=== PATIENT | female | born 1955 | race Caucasian/White ===

== ENCOUNTER 2023-09-03 10:10 | Emergency (ER) | payer BC, SELFPAY ==
[2023-09-03 10:14] VITALS: BP 167/91; PULSE 84; TEMP 36.6; O2SAT 96; BMI 32.4
--- NOTE | 2023-09-03 10:24 | CT_ITS ---
The [address] [address] Patient Name: VENKAT BOWERS MRN: [id number] date: 1955 Sex: F Assigned Patient Location: ED.MAIN Current Patient Location: Accession/Order Number: [id number] Exam Date: 09/03/2023 10:41 Report Date: 09/03/2023 11:15 At the request of: YIFAN GOVEA Procedure: CT cervical spine wo con CT head/brain wo con, CT cervical spine wo con, 09/03/2023 10:41 AM EDT INDICATION: trauma COMPARISON: Prior CT of the head dated 11/06 2010 TECHNIQUE: Axial images of 3 mm are obtained from the base of the skull to vertex completed with Axial images of 2 mm are obtained from base of skull to T2 without contrast. Dose reduction techniques were achieved by using automated exposure control and/or adjustment of mA and/or kV according to patient size and/or use of iterative reconstruction technique. FINDINGS: The cerebral and cerebellar sulci as well as ventricular system are appropriate for age. There is no intracranial mass, mass effect, midline shift, intra or extra-axial fluid collection. No acute territorial infarction or hemorrhage is noted. Periventricular and centrum semiovale hypodensities are most likely consistent with microvascular ischemic changes. Mucosal thickening within the maxillary sinuses and ethmoidal cells is noted. The visualized portions of orbits, mastoid air cells as well as remainder of paranasal sinuses are unremarkable. There is no suspicious osteolytic or osteoblastic lesion. There is status post ACDF of C5-C6. No hardware fracture or loosening is noted. No acute fracture or dislocation is noted. Multilevel degenerative changes of cervical spine are noted. CT/CT cervical spine wo con IMPRESSION: No acute intracranial process is identified. No acute fracture. Electronically authenticated by: REGGIE MCADAMS Date: 09/03/2023 11:15
--- NOTE | 2023-09-03 10:24 | CT_ITS ---
The [address] [address] Patient Name: VENKAT BOWERS MRN: [id number] date: 1955 Sex: F Assigned Patient Location: ED.MAIN Current Patient Location: Accession/Order Number: [id number] Exam Date: 09/03/2023 10:41 Report Date: 09/03/2023 11:15 At the request of: YIFAN GOVEA Procedure: CT head/brain wo con CT head/brain wo con, CT cervical spine wo con, 09/03/2023 10:41 AM EDT INDICATION: trauma COMPARISON: Prior CT of the head dated 11/06 2010 TECHNIQUE: Axial images of 3 mm are obtained from the base of the skull to vertex completed with Axial images of 2 mm are obtained from base of skull to T2 without contrast. Dose reduction techniques were achieved by using automated exposure control and/or adjustment of mA and/or kV according to patient size and/or use of iterative reconstruction technique. FINDINGS: The cerebral and cerebellar sulci as well as ventricular system are appropriate for age. There is no intracranial mass, mass effect, midline shift, intra or extra-axial fluid collection. No acute territorial infarction or hemorrhage is noted. Periventricular and centrum semiovale hypodensities are most likely consistent with microvascular ischemic changes. Mucosal thickening within the maxillary sinuses and ethmoidal cells is noted. The visualized portions of orbits, mastoid air cells as well as remainder of paranasal sinuses are unremarkable. There is no suspicious osteolytic or osteoblastic lesion. There is status post ACDF of C5-C6. No hardware fracture or loosening is noted. No acute fracture or dislocation is noted. Multilevel degenerative changes of cervical spine are noted. CT/CT head/brain wo con IMPRESSION: No acute intracranial process is identified. No acute fracture. Electronically authenticated by: REGGIE MCADAMS Date: 09/03/2023 11:15
[2023-09-03 10:36] VITALS: BP 151/91
--- NOTE | 2023-09-03 10:37 | ECG_ITS ---
The [facility] Test Date: 2023-09-03 Pat Name: VENKAT BOWERS Department: Room: - Gender: Female [employer]: : 1955 Requested By: [id number] Order Number: [id number] Reading MD: KATE ROSARIO Measurements Intervals [place] Rate: 82 P: 33 [place]: 158 QRS: 40 QRSD: 90 T: 40 QT: 386 QTc: 425 Interpretive Statements 1100 Sinus rhythm 9110 normal ECG No previous ECG available for comparison Electronically Signed On 09-04-2023 8:51:11 EDT by KATE ROSARIO
--- NOTE | 2023-09-03 10:37 | CT_ITS ---
The [address] [address] Patient Name: VENKAT BOWERS MRN: [id number] date: 1955 Sex: F Assigned Patient Location: ER Current Patient Location: ER Accession/Order Number: [id number] Exam Date: 09/03/2023 10:41 Report Date: 09/03/2023 11:20 At the request of: YIFAN GOVEA Procedure: CT abdomen pelvis wo con CT abdomen pelvis wo con, 09/03/2023 10:41 AM EDT INDICATION: trauma COMPARISON: There is no appropriate prior study for comparison. TECHNIQUE: Axial images of the abdomen were obtained without administration of IV contrast. Multiplanar reformatted images were generated and reviewed as needed. Dose reduction techniques were achieved by using automated exposure control and/or adjustment of mA and/or kV according to patient size and/or use of iterative reconstruction technique. FINDINGS: Lungs: The base of lungs is clear. No pleural effusion is noted. Severe coronary artery calcification is noted. Liver and gallbladder: The liver and gallbladder are unremarkable. No enlargement of intra or extrahepatic biliary ducts. Genitourinary system: No hydronephrosis. No nephrolithiasis. No abnormality of the urinary bladder is noted. Other solid abdominal organs: adrenal glands, pancreas, and spleen are unremarkable. Aorta: The infrarenal abdominal aorta is nonaneurysmal. Free fluid: There is no free fluid in the abdomen pelvis. Lymph node: No lymph node enlargement by size criteria is noted. Stomach and Bowel: No abnormality of the stomach is noted. Colonic diverticulosis. Otherwise, no significant abnormality of the small or large bowel is noted. Bone: There is no suspicious osteolytic or osteoblastic lesion. Lower lumbar spine and SI joints mild degenerative changes are noted. CT/CT abdomen pelvis wo con IMPRESSION: No acute finding. Electronically authenticated by: REGGIE MCADAMS Date: 09/03/2023 11:20
--- NOTE | 2023-09-03 11:05 | ED_ITS ---
HPI HPI - General Adult General Chief complaint: Headache Stated complaint: FALL Time Seen by Provider: 09/03/23 10:15 Source: patient Mode of arrival: walk-in History of Present Illness HPI narrative: The patient history of hypertension coming to the ER after she sustained a fall according to her, yesterday almost around the morning time 10 AM she was trying to ride her horse and she was wearing her helmet. When she was going up the horse and after putting her left leg and the left side of the side of the patient when she is above the horse, somehow she and the horse fell together on the side she fell on her left side but she passed out for few minutes ,she does not remember what exactly happened after that but she remember according to the of her friend who helped someone drive her from under the horse, that she almost was confused for like 30 min at least after that, and she started having headache few hours later the headache is in both sides, no nausea no vomiting No abdominal pain no leg pain and no numbness or tingling or weakness The horses almost 1400- 1600 pounds as per her evaluation Related Data Previous Rx's ?Medication ?Instructions ?Recorded ibuprofen 600 mg tablet 600 mg PO Q8H PRN pain #10 tabs 09/03/23 orphenadrine citrate 100 mg 100 mg PO BID PRN muscle spasm #14 09/03/23 tablet,extended release tabs Allergies Allergy/AdvReac Type Severity Reaction Status Date / Time No Known Drug Allergies Allergy Verified 09/03/23 10:19 Opioid HPI Opioid Management Most Recent Opioid Data: Last Pain Scale 3 09/03/23 12:11 Last ED Pain Assessment 09/03/23 12:11 Last MAR Pain Assessment 09/03/23 11:37 Review of Systems ROS Status of ROS 10 or more systems reviewed and unremark able except as noted in history and below Exam Narrative Exam Narrative: Nurses notes and vital signs reviewed and patient is not hypoxic. General: Well-appearing and in no apparent distress. Skin: Warm, dry, no pallor noted. No rash. Head: Normocephalic, atraumatic. Neck: Bilateral neck pain both side of the neck paraspinal, no bruit heard in the arteries of the neck Eye: Pupils are equal, round and EOMI. No scleral icterus. Ears, Nose, Mouth, and Throat: TM are clear, no nasal mucosal hypertrophy. Oral mucosa is moist, no posterior oropharynx erythema, uvula is mid-line Cardiovascular: Regular Rate and Rhythm without murmur, gallop or rub. Respiratory: No accessory muscle use or respiratory distress. Lungs are clear to auscultation, no wheezing, rales or rhonchi Chest Wall: no tenderness Back: No midline thoracic or lumbar vertebral tenderness. No CVA tenderness Musculoskeletal: normal ROM, no calf or popliteal tenderness, no lower extremity edema/swelling GI: Abdomen is soft, non-distended. Normal bowel sounds. No masses appreciated. No tenderness to palpation. No rebound, guarding, or rigidity noted. Neurological: A&O x4. No cranial nerve dysfunction observed. No truncal ataxia. Moves all extremities. Sensation intact. Psychiatric: Cooperative and interactive. Normal mood and affect. Constitutional Vital Signs, click to edit/add: Last Vital Signs Temp 97.9 F 09/03/23 10:14 Pulse 84 09/03/23 10:14 Resp 16 09/03/23 10:14 BP 151/91 H 09/03/23 10:36 Pulse Ox 96 09/03/23 10:14 O2 Del Method Room Air 09/03/23 10:14 Course Vital Signs Vital signs: Vital Signs Temperature 97.9 F 09/03/23 10:14 Pulse Rate 84 09/03/23 10:14 Respiratory Rate 16 09/03/23 10:14 Blood Pressure 167/91 H 09/03/23 10:14 Pulse Oximetry 96 09/03/23 10:14 Oxygen Delivery Method Room Air 09/03/23 10:14 Temperature 97.9 F 09/03/23 10:14 Pulse Rate 84 09/03/23 10:14 Respiratory Rate 16 09/03/23 10:14 Blood Pressure 151/91 H 09/03/23 10:36 Pulse Oximetry 96 09/03/23 10:14 Oxygen Delivery Method Room Air 09/03/23 10:14 Medical Decision Making [facility] Narrative Medical decision making narrative: EKG showing sinus rhythm with a heart rate of [address] elevation or depression CBC and chemistry showed no acute pathology CT head as well as CT cervical and CT abdomen pelvis showed no acute pathology as well The patient neck pain is paraspinal and right now I did explain to her that muscle relaxant and ibuprofen high-dose will be enough for management of the pain but in case of any worsening she is to come back to the ER The patient was instructed about concussion management and home as she possibly could have had that from the fall She is to follow-up with her doctor within a week she is also to come back if any new symptoms or concerns and she is to rest and avoid any stress or exertion or any stimulation for the next few days The patient is to follow up with primary care physician in next 2-3 days or to return to the emergency department should any of the signs or symptoms worsen or new symptoms develop. The patient agrees with the following Diagnosis and Treatment plan and the patient will be discharged home. Lab Data Labs: Lab Results 09/03/23 Range/Units 11:05 WBC 10.4 (4.0-11.0) 10^3/uL RBC 4.79 (4.20-5.40) 10^6/uL Hgb 14.6 (12.0-16.0) g/dL Hct 44.5 (36.0-48.0) % MCV 92.9 (81.0-99.0) fL MCH 30.5 (26.7-34.0) pg MCHC 32.8 (29.9-35.2) g/dL RDW 13.5 (11.0-15.0) % Plt Count 330 (150-450) 10^3/uL MPV 8.3 L (9.5-13.5) fL Neut % (Auto) 72.8 (43.0-75.0) % Lymph % (Auto) 17.7 L (20.5-60.0) % [place] % (Auto) 7.1 (1.7-12.0) % Eos % (Auto) 1.5 (0.9-7.0) % Baso % (Auto) 0.7 (0.2-2.0) % Neut # (Auto) 7.6 H (1.4-6.5) 10^3/uL Lymph # (Auto) 1.8 (1.2-3.8) 10^3/uL [place] # (Auto) 0.7 (0.3-0.8) 10^3/uL Eos # (Auto) 0.2 (0.0-0.7) 10^3/uL Baso # (Auto) 0.1 (0.0-0.1) 10^3/uL Abs Immat Gran (auto) 0.02 (0.00-0.03) 10^3/uL Imm/Tot Granulo (auto) 0.2 (0.0-0.5) % Sodium 139 (136-145) mmol/L Potassium 3.7 (3.5-5.1) mmol/L Chloride 102 (98-107) mmol/L Carbon Dioxide 28.4 (21.0-32.0) mmol/L Anion Gap 12.3 BUN 11.0 (7.0-18.0) mg/dL Creatinine 0.84 (0.55-1.02) mg/dL Est GFR ( Amer) >60 (>=60) Est GFR (Non-Af Amer) >60 (>=60) BUN/Creatinine Ratio 13.1 Glucose 105 (74-106) mg/dL Calcium 9.1 (8.5-10.1) mg/dL Total Bilirubin 0.6 (0.2-1.0) mg/dL AST 21 (15-37) U/L ALT 22 (14-59) U/L Alkaline Phosphatase 75 (46-116) U/L Troponin I High Sens 7.1 (4.0-51.3) pg/mL Total Protein 7.8 (6.4-8.2) g/dL Albumin 3.7 (3.4-5.0) g/dL Globulin 4.1 g/dL Albumin/Globulin Ratio 0.9 Discharge Plan Discharge Stand Alone Forms: Portal Instructions Chief Complaint: Headache Clinical Impression: Acute neck sprain, Concussion, Headache Patient Disposition: Home, Self-Care Time of Disposition Decision: 12:34 Condition: Good Prescriptions / Home Meds: New orphenadrine citrate 100 mg tablet extended release 100 mg PO BID PRN (Reason: muscle spasm) Qty: 14 0RF ibuprofen 600 mg tablet 600 mg PO Q8H PRN (Reason: pain) Qty: 10 0RF Print Language: Filipino Instructions: Concussion (ED), Cervical Sprain (ED) Referrals: JOYCE BEJARANO [Physician] - 1 week Discharge Date/Time: 09/03/23 12:56
[2023-09-03 11:19] LABS: Basophils Absolute Auto 0.1 10^3/uL (0.0-0.1); Basophils Percent Auto 0.7 % (0.2-2.0); Eosinophils Absolute Auto 0.2 10^3/uL (0.0-0.7); Eosinophils Percent Auto 1.5 % (0.9-7.0); Hematocrit 44.5 % (36.0-48.0); Hemoglobin 14.6 g/dL (12.0-16.0); Immature Granulocytes Abs Auto 0.02 10^3/uL (0.00-0.03); Immature Granulocytes Pct Auto 0.2 % (0.0-0.5); Lymphocytes Absolute Auto 1.8 10^3/uL (1.2-3.8); Lymphocytes Percent Auto 17.7 % (20.5-60.0); Mean Corpuscular HGB Conc 32.8 g/dL (29.9-35.2); Mean Corpuscular Hemoglobin 30.5 pg (26.7-34.0); Mean Corpuscular Volume 92.9 fL (81.0-99.0); Mean Platelet Volume 8.3 fL (9.5-13.5); Monocytes Absolute Auto 0.7 10^3/uL (0.3-0.8); Monocytes Percent Auto 7.1 % (1.7-12.0); Neutrophils Absolute Auto 7.6 10^3/uL (1.4-6.5); Neutrophils Percent Auto 72.8 % (43.0-75.0); Platelet Count 330 10^3/uL (150-450); Red Blood Count 4.79 10^6/uL (4.20-5.40); Red Cell Distribution Width 13.5 % (11.0-15.0); White Blood Count 10.4 10^3/uL (4.0-11.0)
[2023-09-03] MEDS: KETOROLAC TROMETHAMINE 30 MG/ML VIAL 15 MG IVP (11:37)
[2023-09-03 11:43] LABS: Alanine Aminotransferase 22 U/L (14-59); Albumin Globulin Ratio 0.9; Albumin Level 3.7 g/dL (3.4-5.0); Alkaline Phosphatase 75 U/L (46-116); Anion Gap 12.3; Aspartate Amino Transferase 21 U/L (15-37); BUN Creatinine Ratio 13.1; Bilirubin Total 0.6 mg/dL (0.2-1.0); Calcium 9.1 mg/dL (8.5-10.1); Carbon Dioxide 28.4 mmol/L (21.0-32.0); Chloride 102 mmol/L (98-107); Estimated GFR (African America >60 (>=60); Estimated GFR (Non-African Ame >60 (>=60); Globulin 4.1 g/dL; Glucose 105 mg/dL (74-106); Potassium 3.7 mmol/L (3.5-5.1); Sodium 139 mmol/L (136-145); Total Protein 7.8 g/dL (6.4-8.2); Troponin I High Sensitivity 7.1 pg/mL (4.0-51.3)
== END 2023-09-03 12:56 | disposition home or self-care (01) ==
PROVIDERS: Emergency Provider Emergency Medicine; PCP Family Medicine
DX: S13.9XXA Sprain of joints and ligaments of unspecified parts of neck, initial encounter (principal); S06.0X0A Concussion without loss of consciousness, initial encounter; R51.9 Headache, unspecified; V80.010A Animal-rider injured by fall from or being thrown from horse in noncollision accident, initial encounter; I10 Essential (primary) hypertension
CPT/HCPCS: 36415; 70450; 72125; 74176; 80053; 84484; 85025; 93005; 96374; 99285

== ENCOUNTER 2024-07-26 15:03 | Emergency (ER) | payer MEDICARE, SELFPAY ==
[2024-07-26] VITALS (16 sets, daily range): BP systolic 124–144; BP diastolic 71–88; PULSE 67–77; TEMP 36.6; O2SAT 94–97; BMI 27.5
--- NOTE | 2024-07-26 15:14 | ECG_ITS ---
The [facility] Test Date: 2024-07-26 Pat Name: VENKAT BOWERS Department: Room: - Gender: Female [employer]ler: : 1955 Requested By: [id number] Order Number: [id number] Reading MD: BOBY WALLS M.D. Measurements Intervals [place] Rate: 76 P: 49 [place]: 160 QRS: 71 QRSD: 90 T: 55 QT: 404 QTc: 434 Interpretive Statements 1100 Sinus rhythm 9110 normal ECG Compared to ECG 09/03/2023 11:03:55 No significant changes Electronically Signed On 07-28-2024 21:38:14 EDT by BOBY WALLS M.D.
--- OUTSIDE RECORDS SUMMARY | 2024-07-26 15:19 | XMS_ITS | CCD ---
Author Organization [facility] Care Team Providers Care Case Assembler Name Role Phone JASMINA REECE Unavailable Unavailable JASMINA REECE Unavailable Unavailable JOYCE BEJARANO Unavailable MANFRED Guevara V Unavailable Unavailable JALEN PINTO Unavailable Unavailable Shruthi Fernandez MD Primary Care Provider Shruthi Fernandez MD Unavailable SHRUTHI FERNANDEZ Attending Unavailable SHRUTHI FERNANDEZ Attending Unavailable SHRUTHI FERNANDEZ Referring Unavailable SHRUTHI FERNANDEZ Attending Unavailable SHRUTHI FERNANDEZ Attending Unavailable KIMBERLY MANNING Attending Unavailable KAYCE LEW Referring Unavailable Allergies Allergy Classification Reported Allergen(s) Allergy Type Date of Onset Reaction(s) Facility (1 source) acetaminophen / HYDROcodone Drug Allergy [facility] (15 sources) Acetaminophen / HYDROcodone Drug Allergy 1 Hives [facility] Work Phone: (15 sources) Angiotensin-conve rting enzyme inhibitor agent Drug Allergy 2 Cough [facility] Work Phone: (15 sources) HMG-CoA reductase inhibitor Propensity to adverse reactions 3 Unknown [facility] (15 sources) HYDROcodone Drug Allergy 9 Other [facility] Medications Current Medications Medication Drug Class(es) Dates Sig (Normalized) Sig (Original) albuterol 0.83 mg/ml inhalation solution (20 sources) beta2-Adrenergic Agonist Start: 05-29-2023 albuterol (2.5 MG/3ML) 0.083% nebulizer solution Indications: Bronchitis Take 3 mL (2.5 mg) by nebulization every 6 (six) hours if needed for wheezing 75 mL 1 05/29/2023 Active Start: 05-29-2023 End: 05-28-2024 take 2 puff(s) by inhalation every four hours for wheezing albuterol HFA 90 mcg/act inhaler Indications: Bronchitis Inhale 2 puffs every 4 (four) hours if needed for wheezing 18 g 05/29/2023 Active amLODIPine 10 mg oral tablet (15 sources) Dihydropyridine Calcium Channel Markell Start: 11-09-2023 take 1 tablet by mouth once daily amLODIPine (Norvasc) 10 MG tablet Indications: Benign essential HTN (CMS/HCC) TAKE 1 TABLET BY MOUTH EVERY DAY 90 tablet 2 11/09/2023 Active aspirin 81 mg chewable tablet (15 sources) Platelet Aggregation Inhibitor, Nonsteroidal Anti-inflammatory Drug aspirin 81 MG chewable tablet Chew 81 mg in the morning. Active busPIRone hydrochloride 5 mg oral tablet (16 sources) Start: 06-06-2023 End: 04-08-2024 take 1 tablet by mouth in the morning busPIRone (Buspar) 5 MG tablet Indications: Anxiety Take 1 tablet (5 mg) by mouth in the morning and 1 tablet (5 mg) before bedtime. 180 tablet 1 04/08/2024 Active citalopram 40 mg oral tablet (17 sources) Serotonin Reuptake Inhibitor Start: 05-16-2024 take 1 tablet by mouth once daily citalopram (CeleXA) 40 MG tablet Indications: Recurrent major depressive disorder, in full remission (CMS/HCC) TAKE 1 TABLET BY MOUTH EVERY DAY 90 tablet 1 05/16/2024 Active Start: 08-12-2023 End: 05-16-2024 take 1 tablet by mouth once daily citalopram (CeleXA) 40 MG tablet Indications: Recurrent major depressive disorder, in full remission (CMS/HCC) TAKE 1 TABLET BY MOUTH EVERY DAY 90 tablet 02/07/2024 05/16/2024 Discontinued melatonin 3 mg oral tablet (15 sources) take 10 mg by mouth once daily melatonin 3 MG tablet Take 10 mg by mouth 1 (one) time each day at the same time Active meloxicam 15 mg oral tablet (17 sources) Nonsteroidal Anti-inflammatory Drug Start: 07-26-2023 End: 01-24-2025 take 1 tablet by mouth once daily meloxicam (Mobic) 15 MG tablet Indications: Pain in joints of both feet Take 1 tablet (15 mg) by mouth Daily 30 tablet 01/25/2024 01/24/2025 Active Multiple Vitamins-Minerals (Multivitamin Women 50+) tablet (15 sources) take 1 tablet by mouth once daily Multiple Vitamins-Minerals (Multivitamin Women 50+) tablet Take 1 tablet by mouth 1 (one) time each day at the same time. Active Completed/Discontinued Medications Medication Drug Class(es) Dates Sig (Normalized) Sig (Original) ezetimibe 10 mg oral tablet (3 sources) Dietary Cholesterol Absorption Inhibitor Start: 09-20-2023 End: 01-25-2024 take 1 tablet by mouth once daily ezetimibe (Zetia) 10 MG tablet Indications: Mixed hyperlipidemia (CMS/HCC) Take 1 tablet (10 mg) by mouth Daily 90 tablet 09/20/2023 01/25/2024 Discontinued (Therapy completed) Problems Active Problems Problem Classification Problem Date Documented Date Episodic/Chronic Acquired foot deformities (15 sources) Acquired hallux rigidus; Translations: [Hallux rigidus, unspecified foot] Onset: 09-11-2022 09-11-2022 Chronic Adjustment disorders (15 sources) Family tension; Translations: [Reaction to severe stress, unspecified] Onset: 09-11-2022 09-11-2022 Chronic Anxiety disorders (1 source) Anxiety; Translations: [Anxiety disorder, unspecified] 04-08-2024 Chronic Disorders of lipid metabolism (15 sources) Hyperlipidemia; Translations: [Hyperlipidemia, unspecified] Onset: 09-11-2022 09-11-2022 Chronic Esophageal disorders (15 sources) Gastroesophageal reflux disease without esophagitis; Translations: [Gastro-esophageal reflux disease without esophagitis] Onset: 09-11-2022 09-11-2022 Chronic Essential hypertension (20 sources) Benign essential hypertension; Translations: [Essential (primary) hypertension] Onset: 03-23-2015 09-11-2022 Chronic Genitourinary symptoms and ill-defined conditions (15 sources) Genuine stress incontinence; Translations: [Stress incontinence (female) (male)] Onset: 09-11-2022 09-11-2022 Chronic Malaise and fatigue (20 sources) Fatigue; Translations: [Chronic fatigue, unspecified] Onset: 10-04-2016 09-11-2022 Chronic Mood disorders (17 sources) Recurrent major depression in full remission; Translations: [Major depressive disorder, recurrent, in full remission] Onset: 09-11-2022 09-11-2022 Chronic Other and unspecified benign neoplasm (2 sources) Melanocytic nevus of scalp; Translations: [Melanocytic nevi of scalp and neck] 02-14-2024 Episodic Other connective tissue disease (2 sources) Muscle pain; Translations: [Myalgia, unspecified site] 01-29-2024 Episodic Other lower respiratory disease (2 sources) Nodule of lung; Translations: [Solitary pulmonary nodule] 07-15-2024 Episodic Other non-traumatic joint disorders (2 sources) Bilateral foot joint pain; Translations: [Pain in right ankle and joints of right foot] 01-25-2024 Episodic Other nutritional; endocrine; and metabolic disorders (2 sources) Body mass index 30+ - obesity; Translations: [Obesity, unspecified] 01-25-2024 Chronic Other skin disorders (2 sources) Seborrheic keratosis; Translations: [Other seborrheic keratosis] 02-14-2024 Episodic Other skin disorders (2 sources) Lentiginosis; Translations: [Other melanin hyperpigmentation] 02-14-2024 Episodic Other skin disorders (2 sources) Sebaceous hyperplasia; Translations: [Other specified follicular disorders] 02-14-2024 Episodic Other skin disorders (2 sources) Epidermoid cyst; Translations: [Epidermal cyst] 02-14-2024 Episodic Other skin disorders (2 sources) Acne vulgaris; Translations: [Acne vulgaris] 02-14-2024 Episodic Other skin disorders (2 sources) Inflamed seborrheic keratosis; Translations: [Inflamed seborrheic keratosis] 02-14-2024 Episodic Residual codes; unclassified (1 source) Tobacco use and exposure - finding; Translations: [Tobacco use] 07-15-2024 Episodic Screening and history of mental health and substance abuse codes (1 source) Tobacco use and exposure - finding 07-15-2024 Chronic Screening and history of mental health and substance abuse codes (2 sources) Personal history of nicotine dependence; Translations: [Personal history of tobacco use] 07-15-2024 Episodic Spondylosis; intervertebral disc disorders; other back problems (6 sources) Cervicalgia; Translations: [Disorder of left sciatic nerve] Onset: 07-07-2017 01-25-2024 Episodic Substance-related disorders (1 source) Nicotine dependence, cigarettes, uncomplicated; Translations: [NICOTINE DEPEND CIGARETTES UNCOMP] Onset: 07-11-2017 Chronic Past or Other Problems Problem Classification Problem Date Documented Date Episodic/Chronic Allergic reactions (15 sources) Allergy to penicillin; Translations: [Allergy status to penicillin] Onset: 05-11-2020 09-12-2022 Episodic Headache, including migraine (20 sources) Headache; Translations: [Headache disorder] Onset: 07-11-2017 09-11-2022 Episodic Mood disorders (15 sources) Mood disorders Onset: 09-20-2023 09-20-2023 Other diseases of kidney and ureters (15 sources) Cyst of kidney; Translations: [Cyst of kidney, acquired] Onset: 10-13-2020 09-12-2022 Episodic Other injuries and conditions due to external causes (15 sources) H/O: musculoskeletal disease; Translations: [Personal history of other (healed) physical injury and trauma] Onset: 05-06-2020 09-12-2022 Episodic Other nervous system disorders (15 sources) H/O: migraine; Translations: [Personal history of other diseases of the nervous system and sense organs] Onset: 05-06-2020 09-12-2022 Episodic Other non-epithelial cancer of skin (20 sources) Basal cell carcinoma of cheek; Translations: [Basal cell carcinoma of skin of other parts of face] Onset: 10-06-2020 09-11-2022 Episodic Results Test Name Value Interpretation Reference Range Facil ity CT CHEST WO IV CONTRASTon CT CHEST WO IV CONTRAST Exam: CT CHEST WO IV CONTRAST Clinical History: Follow up on lung nodule, left upper lobe Reference Exam: No comparison Imaging technique: Axial imaging of the thorax is provided from above the thoracic inlet, through the hemidiaphragms. No IV contrast was delivered. Imaging findings: Heart/pericardium: The heart size is normal. No pericardial effusion. No evidence of chamber enlargement. There is evidence of advanced coronary arterial calcification. Great vessels: The great vessels are remarkable for atherosclerosis of the aortic arch extending into the great vessel origins. Standard great vessel branching pattern. Hilum/mediastinum: Negative for mediastinal lymphadenopathy or mass. Pulmonary parenchymal analysis: Pulmonary parenchyma is adequately aerated. No lobar airspace disease. Left upper lobe subpleural 0.7 cm soft tissue density pulmonary nodularity. No other pulmonary nodularity identified. Slightly prominent reticular interstitial lung markings. Subpleural blebs anterior inferior left lower lobe medially. No pneumothorax. No pleural effusion. The airway is unremarkable. No abnormality of the pleural space. Thoracic inlet: Symmetry of the structures here is documented. Upper abdomen: Negative. Osseous analysis: Thoracic spinal spondylosis. Chest wall: Negative. Impression: 1. 0.75 cm soft tissue density pulmonary nodule left upper lobe in the apex. 2. Slightly prominent reticular central lung markings. No lobar consolidation. 3. Vascular atherosclerotic disease. 4. No acute cardiopulmonary pathology otherwise identified. Dictated on: 07/09/2024 4:29 PM This report has been electronically signed and approved by the interpreting Radiologist. All CT scans at this institution are performed using dose optimization techniques as appropriate for the performed exam including the following: Automated exposure control Adjustment of the mA and/or kV according to patient size Use of iterative reconstruction technique Addendum: This examination is compared with 10/01/2023 after the prior studies have for review. Soft tissue density nodule in the posterior superior left upper lobe subpleural location is thought to be slightly more prominent. Addendum impression: Soft tissue subpleural nodularity left upper lobe posteriorly adjacent to the major fissure is thought to be slightly more prominent prior test. 1-year follow-up recommended. Exam: CT CHEST WO IV CONTRAST Clinical History: Follow up on lung nodule, left upper lobe Reference Exam: No comparison Imaging technique: Axial imaging of the thorax is provided from above the thoracic inlet, through the hemidiaphragms. No IV contrast was delivered. Imaging findings: Heart/pericardium: The heart size is normal. No pericardial effusion. No evidence of chamber enlargement. There is evidence of advanced coronary arterial calcification. Great vessels: The great vessels are remarkable for atherosclerosis of the aortic arch extending into the great vessel origins. Standard great vessel branching pattern. Hilum/mediastinum: Negative for mediastinal lymphadenopathy or mass. Pulmonary parenchymal analysis: Pulmonary parenchyma is adequately aerated. No lobar airspace disease. Left upper lobe subpleural 0.7 cm soft tissue density pulmonary nodularity. No other pulmonary nodularity identified. Slightly prominent reticular interstitial lung markings. Subpleural blebs anterior inferior left lower lobe medially. No pneumothorax. No pleural effusion. The airway is unremarkable. No abnormality of the pleural space. Thoracic inlet: Symmetry of the structures here is documented. Upper abdomen: Negative. Osseous analysis: Thoracic spinal spondylosis. Chest wall: Negative. Impression: 1. 0.75 cm soft tissue density pulmonary nodule left upper lobe in the apex. 2. Slightly prominent reticular central lung markings. No lobar consolidation. 3. Vascular atherosclerotic disease. 4. No acute cardiopulmonary pathology otherwise identified. Dictated on: 07/09/2024 4:29 PM This report has been electronically signed and approved by the interpreting Radiologist. All CT scans at this institution are performed using dose optimization techniques as appropriate for the performed exam including the following: Automated exposure control Adjustment of the mA and/or kV according to patient size Use of iterative reconstruction technique Normal Not Available No Panel Informationon 02-13 [employer] CBC panel Auto (Bld)on 01-29 WBC (Bld) [#/Vol] TNP Thousand/uL [facility] Comment on above: TEST NOT PERFORMED No specimen received. Laboratory - Hematology and Cell countson 01-30-2024 ESR (Bld) [Velocity] TNP mm/h [facility] Comment on above: TEST NOT PERFORMED No specimen received. No Panel Informationon 01-29 Performing Organization Information Site ID: QPT Name: [facility] Address: [address] [place] [id number] Director: Jake Garcia MD [employer] [facility] BI MAMMOGRAM SCREENING TOMOS YNTHESIS BILATERALon 10-01-2023 BI MAMMOGRAM SCREENING TOMOSYNTHESIS BILATERAL This is a summary report. The complete report is available in the patient's medical record. If you cannot access the medical record, please contact the sending organization for a detailed fax or copy. EXAMINATION: BI MAMMOGRAM SCREENING TOMOSYNTHESIS BILATERAL CLINICAL HISTORY:screening COMPARISON: September 25, 2022 . RESULT: Density: Almost entirely fatty [1] There is no suspicious mass, asymmetry, architectural distortion, or calcification. Typically benign calcifications. Overall appearance stable. IMPRESSION: BIRADS 2 - Benign Follow-up: Routine Screening Mamm Board Certified Radiologists. Accredited by the ACR and FDA. MAMMOGRAPHY IS VERY IMPORTANT TO YOUR HEALTH. THE [employer] GUIDELINES RECOMMEND THAT WOMEN 40 YEARS OF AGE AND OLDER SHOULD HAVE A MAMMOGRAM EVERY YEAR. A REMINDER LETTER WILL BE SENT AT THE APPROPRIATE TIME. THIS FACILITY UTILIZES A REMINDER SYSTEM TO ENSURE ALL PATIENTS RECEIVE REMINDER NOTIFICATIONS AT THE APPROPRIATE TIME BASED ON THE RECOMMENDATIONS OF THIS EXAM. THIS INCLUDES REMINDERS FOR ROUTINE SCREENING MAMMOGRAMS, DIAGNOSTIC MAMMOGRAMS IN WHICH THE PATIENT IS ASKED TO RETURN FOR ADDITIONAL VIEWS, OR OTHER BREAST IMAGING INTERVENTIONS WHEN APPROPRIATE. THE PATIENT WILL BE PLACED IN THE APPROPRIATE REMINDER SYSTEM INCLUDING A REMINDER AT THE APPROPRIATE TIME FOR ANY PENDING ADDITIONAL VIEWS. TRANSCRIBED BY: ELECTRONICALLY SIGNED BY: Micheal Rios MD Normal Not Available CT LUNG SCREENING LOW DOSEon 10-01-2023 CT LUNG SCREENING LOW DOSE This is a summary report. The complete report is available in the patient's medical record. If you cannot access the medical record, please contact the sending organization for a detailed fax or copy. LOW DOSE CT IMAGING OF THE CHEST WITHOUT INTRAVENOUS CONTRAST MEDIUM. HISTORY: Tobacco use. TECHNICAL FACTORS: Without IV contrast axial helical 1.25mm slice thickness low dose images of the chest performed for lung cancer screening. Findings: No suspicious lung nodule, mass or parenchymal consolidation. Mild bilateral subpleural interstitial prominence. 5 x 10 mm subsolid pleural-based nodule posterior segment left upper lobe contiguous with the superior most aspect of the left major fissure. No pleural or pericardial effusion. No mediastinal or hilar lymphadenopathy. (Nonspecific low volume mediastinal hilar lymph nodes). Unremarkable upper abdominal images. IMPRESSION: Lung Rads: LUNGRADS 3 - Probably Benign Follow-up Recommendation: LDCT 6 Month Lung Rads categories Category 0: Incomplete Additional Imaging Categories 1 & 2: Negative/Benign Continue annual screening Category 3: Probable benign 6 month f/u CT Chest wo Category 3s: Clinically significant or potentially clinically significant findings Category 4A/B Suspicious 4A: [address] Chest wo; PET/CT when > 8mm solid nodule component exists 4B: Chest w/ contrast; PET/CT and/or biopsy All CT scans at this facility use dose modulation, iterative reconstruction, and/or weight based dosing when appropriate to reduce radiation dose to as low as reasonably achievable. TRANSCRIBED BY: ELECTRONICALLY SIGNED BY: Micheal Rois MD Normal Not Available SCREENING MAMMOGRAM W/JOSIAH, BILATERAL*on 09-21-2021 SCREENING MAMMOGRAM W/JOSIAH, BILATERAL* COMPARISON: Dating back to September 14, 2020 and September 04, 2019. TECHNIQUE: 2D and 3D Tomosynthesis of the right and left breasts was performed. FINDINGS: Breast composition demonstrates almost entirely fat. Overall appearance is stable. Typicallyk benign calcifications. No suspicious microcalcifications, dominant mass lesions, or distortion is present. IMPRESSION: BI-RADS 2 Benign Mammogram Board Certified Radiologist. Accredited by the ACR and FDA. MAMMOGRAPHY IS VERY IMPORTANT TO YOUR HEALTH. THE CURRENT [employer] GUIDELINES RECOMMENDS ANNUAL MAMMOGRAPHY BEGINNING AT AGE 40 THIS FACILITY USES A REMINDER SYSTEM TO ENSURE ALL PATIENTS RECEIVE REMINDER NOTIFICATIONS AT THE APPROPRIATE TIME BASED ON THE RECOMMENDATIONS OF THIS EXAM. Report reported and signed by Micheal Rios on 09/21/2021 0947 Normal [facility] Complete Blood Count with Au to Diffon 09-09-2021 Basophils (Bld) [#/Vol] 0.06 10*3/uL Normal 0.00-0.20 [facility] Specialist Comment on above: Performed By: #### C BCAD, LIPD, TSH reflex FT4, CMP #### [facility] [address], [place] [id number] Basophils/100 WBC (Bld) 0.6 % Normal [facility] Comment on above: Performed By: #### C BCAD, LIPD, TSH reflex FT4, CMP #### [facility] [address], [place] [id number] Eosinophils (Bld) [#/Vol] 0.49 10*3/uL Normal 0.02-0.50 [facility] Comment on above: Performed By: #### C BCAD, LIPD, TSH reflex FT4, CMP #### [facility] [address], [place] [id number] Eosinophils/100 WBC (Bld) 5.3 % Normal [facility] Comment on above: Performed By: #### C BCAD, LIPD, TSH reflex FT4, CMP #### [facility] [address], [place] [id number] Erythrocyte distribution width (RBC) [Ratio] 13.5 % Normal 11.0-15.0 [facility] Comment on above: Performed By: #### C BCAD, LIPD, TSH reflex FT4, CMP #### [facility] [address], [place] [id number] Hematocrit (Bld) [Volume fraction] 43.3 % Normal 35.0-47.0 [facility] Specialist Comment on above: Performed By: #### C BCAD, LIPD, TSH reflex FT4, CMP #### [facility] [address], [place] [id number] Hemoglobin (Bld) [Mass/Vol] 14.3 g/dL Normal 11.6-15.5 [facility] Specialist Comment on above: Performed By: #### C BCAD, LIPD, TSH reflex FT4, CMP #### [facility] [address], [place] [id number] Lymphocytes (Bld) [#/Vol] 2.0 10*3/uL Normal 0.9-3.9 [facility] Specialist Comment on above: Performed By: #### C BCAD, LIPD, TSH reflex FT4, CMP #### [facility] [address], [place] [id number] Lymphocytes/100 WBC (Bld) 22.0 % Normal [facility] Specialist Comment on above: Performed By: #### C BCAD, LIPD, TSH reflex FT4, CMP #### [facility] [address], [place] [id number] MCH (RBC) [Entitic mass] 30.3 pg Normal 27.0-33.0 [facility] Specialist Comment on above: Performed By: #### C BCAD, LIPD, TSH reflex FT4, CMP #### [facility] [address], [place] [id number] MCHC (RBC) [Mass/Vol] 33.0 g/dL Normal 32.0-36.0 [facility] Specialist Comment on above: Performed By: #### C BCAD, LIPD, TSH reflex FT4, CMP #### [facility] [address], [place] [id number] MCV (RBC) [Entitic vol] 92 fL Normal 80-100 [facility] Specialist Comment on above: Performed By: #### C BCAD, LIPD, TSH reflex FT4, CMP #### [facility] [address], [place] [id number] Monocytes (Bld) [#/Vol] 0.6 10*3/uL Normal 0.2-0.9 [facility] Specialist Comment on above: Performed By: #### C BCAD, LIPD, TSH reflex FT4, CMP #### [facility] [address], [place] [id number] Monocytes/100 WBC (Bld) 6.2 % Normal [facility] Specialist Comment on above: Performed By: #### C BCAD, LIPD, TSH reflex FT4, CMP #### [facility] [address], [place] [id number] Neutrophils (Bld) [#/Vol] 6.1 10*3/uL Normal 1.5-7.8 [facility] Specialist Comment on above: Performed By: #### C BCAD, LIPD, TSH reflex FT4, CMP #### [facility] [address], [place] [id number] Neutrophils/100 WBC (Bld) 65.5 % Normal [facility] Specialist Comment on above: Performed By: #### C BCAD, LIPD, TSH reflex FT4, CMP #### [facility] [address], [place] [id number] Platelet mean volume (Bld) [Entitic vol] 8.90 fL Normal 7.50-12.50 [facility] Specialist Comment on above: Performed By: #### C BCAD, LIPD, TSH reflex FT4, CMP #### [facility] [address], [place] [id number] Platelets (Bld) [#/Vol] 382 10*3/uL Normal 140-400 [facility] Specialist Comment on above: Performed By: #### C BCAD, LIPD, TSH reflex FT4, CMP #### [facility] [address], [place] [id number] RBC (Bld) [#/Vol] 4.72 10*6/uL Normal 3.90-5.20 [facility] [employer] Chair Comment on above: Performed By: #### C BCAD, LIPD, TSH reflex FT4, CMP #### [facility] [address], [place] [id number] RDW-SD 45.8 fL Normal 37.0-50.0 [facility] [employer] [facility] Chair Comment on above: Performed By: #### C BCAD, LIPD, TSH reflex FT4, CMP #### [facility] [address], [place] [id number] WBC (Bld) [#/Vol] 9.3 10*3/uL Normal 3.8-11.0 [place] [employer] [facility] Chair Comment on above: Performed By: #### C BCAD, LIPD, TSH reflex FT4, CMP #### [facility] [address], [place] [id number] [facility] 09-09-2021 Albumin [Mass/Vol] 4.4 g/dL Normal 3.6-5.1 [place] [facility] [place] [employer] Chair Comment on above: Performed By: #### C BCAD, LIPD, TSH reflex FT4, CMP #### [facility] [address], [place] [id number] Albumin/Globulin [Mass ratio] 2.1 {ratio} Normal 1.0-2.5 [facility] [employer] Chair Comment on above: Performed By: #### C BCAD, LIPD, TSH reflex FT4, CMP #### [facility] [address], [place] [id number] ALP [Catalytic activity/Vol] 75 U/L Normal 35-119 [facility] [employer] Chair Comment on above: Performed By: #### C BCAD, LIPD, TSH reflex FT4, CMP #### [facility] [address], [place] [id number] ALT [Catalytic activity/Vol] 10 U/L Normal 6-33 [facility] [employer] Chair Comment on above: Result Comment: 03/09 Female reference range changed. Performed By: #### C BCAD, LIPD, TSH reflex FT4, CMP #### [facility] [address], [place] [id number] Anion gap [Moles/Vol] 16 mmol/L Normal 12-20 [facility] [employer] Division Chair Comment on above: Result Comment: Effe ctive 04/14/2019 reference range changed. Performed By: #### C BCAD, LIPD, TSH reflex FT4, CMP #### [facility] [address], [place] [id number] AST [Catalytic activity/Vol] 17 U/L Normal 9-34 [facility] [employer] [facility] Chair Comment on above: Performed By: #### C BCAD, LIPD, TSH reflex FT4, CMP #### [facility] [address], [place] [id number] Bilirubin [Mass/Vol] 0.40 mg/dL Normal 0.30-1.20 [facility] Specialist Comment on above: Performed By: #### C BCAD, LIPD, TSH reflex FT4, CMP #### [facility] [address], [place] [id number] BUN/CREA 28 Ratio High 6-22 [facility] Comment on above: Performed By: #### C BCAD, LIPD, TSH reflex FT4, CMP #### [facility] [address], [place] [id number] Calcium [Mass/Vol] 9.3 mg/dL Normal 8.6-10.2 [facility] Comment on above: Performed By: #### C BCAD, LIPD, TSH reflex FT4, CMP #### [facility] [address], [place] [id number] Chloride [Moles/Vol] 101 mmol/L Normal 98-107 [facility] Specialist Comment on above: Performed By: #### C BCAD, LIPD, TSH reflex FT4, CMP #### [facility] [address], [place] [id number] CO2 [Moles/Vol] 24 mmol/L Normal 20-31 [facility] Comment on above: Performed By: #### C BCAD, LIPD, TSH reflex FT4, CMP #### [facility] [address], [place] [id number] Creatinine [Mass/Vol] 0.6 mg/dL Normal 0.6-1.4 [facility] Comment on above: Performed By: #### C BCAD, LIPD, TSH reflex FT4, CMP #### [facility] [address], [place] [id number] eGFRAA 117 mL/min/1.73m2 Normal >60 [facility] Comment on above: Performed By: #### C BCAD, LIPD, TSH reflex FT4, CMP #### [facility] [address], [place] [id number] eGFRNAA 97 mL/min/1.73m2 Normal >60 [facility] [employer] [facility] Chair Comment on above: Performed By: #### C BCAD, LIPD, TSH reflex FT4, CMP #### [facility] [address], [place] [id number] Globulin (S) [Mass/Vol] 2.1 g/dL Normal 1.9-3.7 [facility] [employer] [facility] Chair Comment on above: Performed By: #### C BCAD, LIPD, TSH reflex FT4, CMP #### [facility] [address], [place] [id number] Glucose [Mass/Vol] 94 mg/dL Normal 65-99 [facility] [place] [facility] Chair Comment on above: Result Comment: For FASTING Glucose --- ADA reference ranges: Normal 65-99 mg/dl Prediabetes 100-125 Diabetes >/= 126 Performed By: #### C BCAD, LIPD, TSH reflex FT4, CMP #### [facility] [address], [place] [id number] Potassium [Moles/Vol] 3.9 mmol/L Normal 3.5-5.5 [facility] Chair Comment on above: Performed By: #### C BCAD, LIPD, TSH reflex FT4, CMP #### [facility] [address], [place] [id number] Protein [Mass/Vol] 6.5 g/dL Normal 6.1-8.1 [place] [facility] [place] [facility] Chair Comment on above: Performed By: #### C BCAD, LIPD, TSH reflex FT4, CMP #### [facility] [address], [place] [id number] Sodium [Moles/Vol] 137 mmol/L Normal 135-146 [facility] [place] [facility] Chair Comment on above: Performed By: #### C BCAD, LIPD, TSH reflex FT4, CMP #### [facility] [address], [place] [id number] Urea nitrogen [Mass/Vol] 18 mg/dL Normal 7-25 [facility] Chair Comment on above: Performed By: #### C BCAD, LIPD, TSH reflex FT4, CMP #### [facility] [address], [place] [id number] Lipid Panelon 09-09-2021 Cholesterol [Mass/Vol] 250 mg/dL High 125-200 [facility] Specialist Comment on above: Result Comment: Low risk < 200mg/dL Borderline risk 201-239 mg/dl High risk > or equal to 240 Performed By: #### C BCAD, LIPD, TSH reflex FT4, CMP #### [facility] [address], [place] [id number] Cholesterol in HDL [Mass/Vol] 79 mg/dL Normal >40 [facility] Specialist Comment on above: Result Comment: High Cardiovascular Risk HDL <40 mg/dL Low Cardiovascular Risk HDL > or equal to 60 mg/dl Performed By: #### C BCAD, LIPD, TSH reflex FT4, CMP #### [facility] [address], [place] [id number] Cholesterol in LDL [Mass/Vol] 153 mg/dL Normal [facility] Specialist Comment on above: Result Comment: LDL ATP III CLASSIFICATION LDL less than 100 mg/dl Optimal LDL 100-129 mg/dl Near or above optimal LDL 130-159 Borderline high LDL 160-189 High LDL greater than 189 mg/dl Very High Performed By: #### C BCAD, LIPD, TSH reflex FT4, CMP #### [facility] [address], [place] [id number] Cholesterol in VLDL [Mass/Vol] 18 mg/dL Normal [facility] Specialist Comment on above: Performed By: #### C BCAD, LIPD, TSH reflex FT4, CMP #### [facility] [address], [place] [id number] Cholesterol.total/C holesterol in HDL [Mass ratio] 3 {ratio} Normal [facility] Specialist Comment on above: Performed By: #### C BCAD, LIPD, TSH reflex FT4, CMP #### [facility] [address], [place] [id number] Triglyceride [Mass/Vol] 91 mg/dL Normal 30-150 [facility] Specialist Comment on above: Result Comment: TRIG ATPIII CLASSIFICATIONS TRIG less than 150 mg/dl Normal TRIG 150-199 mg/dl Borderline High TRIG 200-500 mg/dl High TRIG greather than 500 mg/dl Very High Performed By: #### C BCAD, LIPD, TSH reflex FT4, CMP #### [facility] [address], [place] [id number] TSH w/ Reflex to Free T4on 0 09-09-2021 TSH 3.840 uIU/mL Normal 0.400-4.500 [facility] io Math And Science Division Chair Comment on above: Performed By: #### C BCAD, LIPD, TSH reflex FT4, CMP #### [facility] [address], [place] [id number] Superficial Wound Cultureon 12-02-2020 Superficial Wound Culture RIGHT LATERAL CHEEK Heavy Normal Skin Amy 2 Days PERFORMED BY: [place] [address] PATHOLOGIST INTERNET APPLICATION DEVELOPER CECILIA ALEJO M.D. [facility] Comment on above: Performed By: #### C USUP #### [place] [address] [place] XR ankle LT min 3V*on 2020 XR ankle LT min 3V* [facility] [place] [address] [place] [address] XRay Report Signed Patient: Venkat Thompson MR#: [id number] 663 : 1955 Acct:[id number] Age/Sex: 64 / F ADM Date: 09/30/20 Loc: [facility] Room: Type: [facility] Attending Dr: Ari Braga MD Ordering Provider: Ari Braga MD Date of Service: 09/30/20 XR/XR ankle LT min 3V*: Closed avulsion fracture of distal end of left fibula with r Copies to: Ari Braga MD XR ankle LT min 3V* 09/30/2020 8:38 AM SIGNS AND SYMPTOMS: Status post avulsion fracture of the left distal fibula, follow-up PROTOCOL: Frontal, lateral, and oblique radiographs of the left ankle COMPARISON: 08/30/2020 FINDINGS: There is redemonstration of a tiny avulsed fragment from the lateral malleolus without significant interval change in alignment. There is diffuse soft tissue swelling. There is no evidence of acute displaced fracture. No subluxation. The ankle mortise is preserved. There is mild Achilles surface calcaneal spurring. Mild degenerative changes are noted in the midfoot. XR/XR ankle LT min 3V* IMPRESSION: Redemonstration of a minimally displaced avulsion fracture at the lateral malleolus with adjacent soft tissue swelling. No change in alignment. Impression dictated by: Joyce Miranda M.D.09/30/2020 12:31 PM Dictation Location: [place] [address] Transcribed By: [facility] 09/30/20 1231 Dictated By: Joyce Miranda II, MD 09/30/20 1230 Signed By: 09/30/[address] [facility] XR foot LT min 3V*on 021 XR foot LT min 3V* [facility] [place] [address] [place] [address] XRay Report Signed Patient: Venkat Thompson MR#: [id number] 663 : 1955 Acct:[id number] Age/Sex: 64 / F ADM Date: 08/30/20 Loc: [facility] Room: Type: [facility] Attending Dr: Kimberly LANGLEY Ordering Provider: KIMBERLY CANNON Date of Service: 08/30/20 XR/XR foot LT min 3V*: Injury of left ankle, initial encounter ([id number]) XR/XR ankle LT min 3V*: Injury of left ankle, initial encounter Copies to: KIMBERLY CANNON Left ankle and left foot 08/30/2020. CLINICAL DATA: Left ankle and left foot pain after injury. LEFT ANKLE FINDINGS: 3 views of the left ankle were obtained. There is an acute displaced avulsion fracture at the distal lateral malleolus. No other fracture is identified. No dislocation is seen. Degenerative changes are visualized. Soft tissue swelling is noted, greatest laterally. LEFT FOOT FINDINGS: 3 views of the left foot were obtained. Excluding the distal fibula, no acute fracture or dislocation is identified. There are degenerative changes at the first metatarsal- phalangeal joint. Excluding the ankle, no significant soft tissue swelling is noted. XR/XR ankle LT min 3V* IMPRESSION: Acute displaced avulsion fracture at the distal lateral malleolus. Impression dictated by: Hal Pascual Jr., M.D.08/30/2020 4:47 PM Dictation Location: [place] [address] Transcribed By: [facility] 08/30/207 Dictated By: Hal Pascual Jr, MD 08/30/20 1640 Signed By: 08/30/207 [facility] XR C-SPINE 2-3 VIEWSon 07-07 XR C-SPINE 2-[address] [place] [id number] Patient: VENKAT THOMPSON Exam Date: 07/07/2017DOB: 1955 Gender:F : TORREY HIRSCH Admission #: [id number] : DR JASMINA REECE D.O. Order #: [id number] HERE TO VIEW EXAM RADIOLOGY REPORT PROCEDURE: RADIOGRAPH C-SPINE 2-3 VIEWS COMPARISON: None. INDICATIONS: Acute posterior cervical pain FINDINGS: BONES: Moderate widespread spondylosis and facet osteoarthritis. No visible acute bony abnormality. Anterior fusion C6-C7. No mechanical failure.DISC SPACES: Intervertebral spacer [id number]: Negative. No paraspinous abnormality is seen. OTHER: Negative. CONCLUSION: 1. Moderate spondylosis and facet osteoarthritis Dictated by: Manfred Hall M.D. on 07/07/2017 at 16:29 Approved by: Manfred Hall M.D. on 07/07/2017 at 16:31 Normal [facility] Vital Signs Date Time Vital Sign Value Performing Clinician Annie weems 01-29-2024 13:040 Body height 162.6 cm Shruthi Fernandez MD Work Phone: [facility] 01-29-2024 13:040 Body mass index (BMI) [Ratio] 28.94 kg/m2 Shruthi Fernandez MD Work Phone: [facility] 01-29-2024 13:040 Body weight 76.48 kg Shruthi Fernandez MD Work Phone: [facility] 01-29-2024 13:24-0400 Diastolic blood pressure 98 mm[Hg] Shruthi Fernandez MD Work Phone: [facility] 01-29-2024 13:24-0400 Heart rate 95 /min Shruthi Fernandez MD Work Phone: [facility] 01-29-2024 13:24-0400 SaO2% (BldA) [Mass fraction] 95 % hSruthi Fernandez MD Work Phone: [facility] 01-29-2024 13:24-0400 Systolic blood pressure 166 mm[Hg] Shruthi Fernandez MD Work Phone: [facility] 01-25-2024 13:24-0400 Body height 162.6 cm Shruthi Fernandez MD Work Phone: [facility] 01-25-2024 13:24-0400 Body mass index (BMI) [Ratio] 29.59 kg/m2 Shruthi Fernandez MD Work Phone: [facility] 01-25-2024 13:24-0400 Body weight 78.2 kg Shruthi Fernandez MD Work Phone: [facility] 01-25-2024 13:24-0400 Diastolic blood pressure 84 mm[Hg] Shruthi Fernandez MD Work Phone: [facility] 01-25-2024 13:24-0400 Heart rate 103 /min Shruthi Fernandez MD Work Phone: [facility] 01-25-2024 13:24-0400 SaO2% (BldA) [Mass fraction] 94 % Shruthi Fernandez MD Work Phone: [facility] 01-25-2024 13:24-0400 Systolic blood pressure 130 mm[Hg] Shruthi Fernandez MD Work Phone: [facility] Healthcare Encounters Encounter Date Encounter Type Care Provider Facility Start: 07-15-2024 End: 07-15-2024 Orders Only Kayce Lew HYDRO STATION OPERATOR Work Phone: [facility] Comment on above: Pulmonary nodule (Pr imary Dx); Tobacco use; Personal history of nicotine dependence Start: 07-09-2024 End: 07-09-2024 ambulatory KAYCE LEW Not Available Start: 05-16-2024 End: 05-16-2024 Refill Shruthi Fernandez MD Work Phone: [facility] Comment on above: Recurrent major depr essive disorder, in full remission (CMS/HCC) Start: 04-08-2024 End: 04-08-2024 Refill Kayce Lew HYDRO STATION OPERATOR Work Phone: [facility] Comment on above: Anxiety Start: 02-20-2024 End: 02-20-2024 Telephone encounter Shruthi Fernandez MD Work Phone: [facility] Start: 02-14-2024 End: 02-14-2024 Bamboo SlideSharedarian Manning MD Work Phone: [facility] Start: 02-14-2024 End: 02-14-2024 Bamboo SlideSharedarian Manning MD Work Phone: [facility] Start: 02-14-2024 End: 02-14-2024 Office outpatient visit 15 minutes Kimberly Manning MD Work Phone: [facility] Comment on above: Melanocytic nevus of scalp (Primary Dx); Seborrheic keratosis; Lentigines; Sebaceous hyperplasia of face; Epidermal inclusion cyst; Acne vulgaris; Seborrheic keratosis, inflamed; History of basal cell carcinoma Start: 02-14-2024 End: 02-14-2024 ambulatory KIMBERLY MANNING Not Available Start: 02-07-2024 End: 02-20-2024 Refill Shruthi Fernandez MD Work Phone: [facility] Comment on above: Recurrent major depr essive disorder, in full remission (CMS/HCC) Start: 01-29-2024 End: 01-29-2024 Bamboo flowsheet Shruthi Fernandez MD Work Phone: [facility] Start: 01-29-2024 End: 01-29-2024 Bamboo flowsheet Shruthi Fernandez MD Work Phone: [facility] Start: 01-29-2024 End: 01-29-2024 Office outpatient visit 15 minutes Shruthi Fernandez MD Work Phone: [facility] Comment on above: Acute nonintractable headache, unspecified headache type (Primary Dx); Myalgia Start: 01-29-2024 End: 01-29-2024 ambulatory SHRUTHI FERNANDEZ Not Available Start: 01-25-2024 End: 01-25-2024 Bamboo flowsheet Shruthi Fernandez MD Work Phone: [facility] Start: 01-25-2024 End: 01-25-2024 Bamboo flowsheet Shruthi Fernandez MD Work Phone: [facility] Start: 01-25-2024 End: 01-25-2024 Office outpatient visit 15 minutes Shruthi Fernandez MD Work Phone: [facility] Comment on above: Sciatica of left rebecca e (Primary Dx); Pain in joints of both feet; Benign essential HTN (CMS/HCC); Obesity (BMI 30-39.9) Start: 01-25-2024 End: 01-25-2024 ambulatory SHRUTHI FERNANDEZ Not Available Start: 01-14-2024 End: 01-15-2024 Telephone encounter Shruthi Fernandez MD Work Phone: [facility] Comment on above: Med Refill Start: 10-01-2023 End: 10-01-2023 ambulatory SHRUTHI FERNANDEZ Not Available Start: 09-20-2023 End: 09-20-2023 ambulatory SHRUTHI FERNANDEZ Not Available Start: 07-26-2023 End: 07-26-2023 ambulatory SHRUTHI FERNANDEZ Not Available Start: 07-07-2017 End: 07-07-2017 Ambulatory JASMINA REECE Facility:[facility] Procedures Date Procedure Procedure Detail Performing Clinician Start: 02-14-2024 CRYOTHERAPY SKIN LESION Kimberly Manning MD Work Phone: Start: 01-29-2024 Blood count complete automated Shruthi Fernandez MD Work Phone: Start: 10-01-2023 Mammography Shruthi Fernandez MD Work Phone: Start: 09-11-2022 H/O: hysterectomy History of hysterectomy Shruthi Fernandez MD Work Phone: Start: 12-14-2020 Colonoscopy Shruthi Fernandez MD Work Phone: Plan of Treatment Date Care Activity Detail Author Start: 12-14-2030 Screening for malign ant neoplasm of colon [facility] Start: 07-15-2025 End: 07-15-2025 CT Chest for screening WO contrast CT lung screening low dose Imaging Routine Pulmonary nodule Tobacco use Personal history of nicotine dependence Expected: 07/15/2025, Expires: 07/15/2025 [facility] Work Phone: Comment on above: Expected: 07/15/2025 , Expires: 07/15/2025 Start: 02-19-2025 End: 02-19-2025 Patient encounter procedure 02/19/2025 9:15 AM EST Office Visit [facility] [address] [place] [address] Kimberly aMnning MD [address] [place] [address] [facility] Start: 12-08-2024 Influenza vaccination Influenz a Vaccine (Season Ended) [facility] Start: 09-30-2024 Screening for malign ant neoplasm of breast Mammogram [facility] Start: 09-19-2024 Medicare Annual Wellness (AWV) Medicare Annual Wellness (AWV) [facility] Start: 03-21-2024 Influenza vaccination Influenza Vacc ine (#1) [facility] Comment on above: Postponed from 12/08 (Patient Refused) Start: 02-14-2024 End: 02-14-2024 [facility] Comment on above: Arrived Start: 01-29-2024 End: 01-29-2024 Patient encounter procedure 01/29/2024 1:30 PM EDT Office Visit [facility] [address] [place] [address] Shruthi Fernandez MD [address] [place] [address] Arrived [facility] Comment on above: Arrived Start: 01-25-2024 End: 01-25-2024 Patient encounter procedure [facility] Comment on above: Arrived Start: 12-09-2023 Influenza vaccination Influenza Vacc ine (#1) [facility] Start: 1955 Screening for malign ant neoplasm of colon [facility] Immunizations Immunization Date Immunization Notes Care Provider Fa cility 09-20-2023 Pneumococcal Conjuga te PCV 20 Shruthi Fernandez MD Work Phone: [facility] 01-17-2019 influenza, high dose seasonal, preservative-free Shruthi Fernandez MD Work Phone: [facility] 01-17-2019 influenza, injectabl e, quadrivalent, preservative free Shruthi Fernandez MD Work Phone: [facility] 01-17-2019 pneumococcal polysaccharide vaccine, 23 valent Shruthi Fernandez MD Work Phone: [facility] 01-17-2019 influenza virus vacc ine, unspecified formulation Shruthi Fernandez MD Work Phone: [facility] 05-01-2016 pneumococcal conjuga te vaccine, 13 valent Shruthi Fernandez MD Work Phone: [facility] 02-12-2015 influenza, seasonal, injectable, preservative free Shruthi Fernandez MD Work Phone: [facility] 10-13-2011 zoster vaccine, live Nickolas Fernandez MD Work Phone: [facility] Payers Date Payer Category Payer Medicare ANTH MEDICARE ADVANTAGE [facility] MEDICARE ADVANTAGE [id number] 2022-Present [address] [place] [address] [id number] 2022 Medicare (Managed Care) [id number] 2022 Medicare [id number] 1959 Medicare [id number] 1955 Unknown [id number] [id number] 1955 Unknown [id number] 2.1258 1955 Unknown [id number] 2.1259 1955 Unknown [id number] 2.9 1955 Unknown [id number] 2.1259 1955 Unknown [id number] 2.1259 1955 Unknown [id number] 2.1259 1955 Unknown [id number] [id number] Social History Date Type Detail Facility Start: 04-09-1993 Tobacco smoking stat [facility] Smokes tobacco daily [facility] Start: 04-09-1993 History of tobacco use Cigarette Smo ker [facility] Start: 10-09-2023 End: 01-29-2024 Cigarettes smoked current (pack per day) - Reported 0.5 [facility] Start: 10-09-2023 Tobacco use and exposure Smoke less tobacco non-user [facility] Start: 10-09-2023 End: 02-14-2024 Alcoholic beverage intake [facility]-drinker (finding) [facility] Start: 10-09-2023 End: 01-29-2024 Tobacco use panel [facility] Start: 09-09-2022 Alcohol Comment Caffeine: 3-4 cups/d ay [facility] Start: 1955 Sex assigned at Not on file [facility] Start: 06-21-2022 Gender identity Identifies as female gender (finding) [facility] Clinical Notes 01-15-2024 to 05-16-2024 Telephone Encounter - Shruthi Fernandez MD - 05/16/2024 12:39 PM ESTTelephone Encounter - Shruthi Fernandez MD - 05/16/2024 12:39 PM ESTTelephone Encounter - Elisabeth Barnhart - 02/20/2024 2:02 PM EST Note Date & Type Note Facility 05-16-2024 Telephone encount er Note Refills sent. [facility] 05-16-2024 Miscellaneous Notes Formattin g of this note might be different from the original. Refills sent. documented in this encounter [facility] 02-20-2024 Telephone encount er Note Patient called and is requesting Semaglutide sent to [facility] in [place]. Ty [facility] 02-20-2024 Miscellaneous Notes Formattin g of this note might be different from the original. Patient called and is requesting Semaglutide sent to [facility] in [place]. Ty documented in this encounter [facility] 02-14-2024 History of Presen t illness Narrative Images from the original note were not included. Skin Check Location: Patient requests a skin examination from the waist up Dermatologic history: History of Basal cell carcinoma Last visit: 1 year ago Established patient Acne Location: face Duration: years Severity: mild Nature of acne: blackheads Current treatment: BPO cream every day as needed- improvement with blackheads Lesions: Location: left breast Duration: months Quality: bleeding noted after scratching Modifying factors: aggravated by scratching and rubs on bra Associated symptoms: enlarged, rough Treatments: none Lesion # 2: Location: back and chest Duration: most of the summer 2023 Quality: itchy Modifying factors: rubs on clothing Associated symptoms: pimple that never came to a head per patient Treatments: none All pertinent medical history, medications, and allergies were reviewed. General Exam: alert, oriented to person, place, and time, normal affect, well appearing Unaccompanied A complete skin exam was offered, pt declined. Areas not examined despite medical recommendation: From the waist down Scalp, Examined Head, Face Examined Neck Examined Chest Examined Back Examined Abdomen Examined Right arm Examined Left arm Examined Hands Examined Digits,nails: Examined Lymphatics: 1. Melanocytic nevus of scalp Right Parietal Scalp Scattered benign appearing, regular brown to light brown melanocytic papules and macules with similar morphology Counseled regarding these benign growths. Rarely, a nevus can develop into malignant melanoma, so any changing nevi should be promptly re-evaluated. 2. Seborrheic keratosis (2) Generalized, Torso - Posterior (Back) Stuck on verrucous, braga-brown papules and plaques. Patient was counseled regarding these benign growths. Removal is normally not necessary, but they may be removed if they are symptomatic or for cosmetic reasons. 3. Lentigines (3) Head - Anterior (Face), Left Arm, Right Arm Scattered braga macules in sun-exposed areas. The patient was informed that lentigines are benign pigmented lesions that occur on sun-exposed and sun-damaged skin. No treatment is necessary. Recommended regular use of broad spectrum sunscreen SPF 30 or higher 4. Sebaceous hyperplasia of face Head - Anterior (Face) Small yellow papules with a central dell. Reassure, benign. Discussed these can be removed for a cosmetic fee with the hyfrecator if desired. 5. Epidermal inclusion cyst Right Lower Back 1.0 x 0.8 cm subcutaneous, mobile nodule WITHOUT central punctum. Patient was counseled regarding cysts. Although benign, cysts often slowly enlarge and can occasionally become inflamed. Discussed the only way to definitively diagnose the lesion would be to have it removed and tested. Discussed treatment options including observation vs. excision. Patient elected for observation. Notify office if lesion is enlarging or becomes symptomatic. 6. Acne vulgaris Head - Anterior (Face) Scattered comedones The use of non-comedogenic cleansers and moisturizers was recommended.Continue Neutrogena BPO cream, samples provided. 7. Seborrheic keratosis, inflamed (5) Left Breast, Right Lower Back (2), Right Upper Back (2) [place] and brown stuck on verrucous scaly papule with surrounding erythema The patient was informed that symptomatic seborrheic keratoses are benign growths that become inflamed, itchy, tender, traumatized, caught on clothing, or bleed. Symptomatic lesions can be treated with cryotherapy or curretage. Thicker lesions treated with cryotherapy may require more than one treatment. The patient was instructed to notify the office if abnormal redness or tenderness develops at the treatment site. Cryotherapy today, see procedure note. Diagnosis: Inflamed seborrheic keratosis Indication: Inflamed Consent: Verbal consent was obtained and risks were discussed, including, but not limited to risks of scarring, darker or home care physical therapist pigmentary changes, recurrence, incomplete removal and infection. Method: Liquid nitrogen was used to treat the lesion(s) with two 5-10 second freeze-thaw cycles Number of lesions treated: 5 Post-procedure instructions: Instructions were given orally and in writing. The office will be contacted if the lesion fails to resolve despite treatment, or if a side effect develops such as abnormal crusting, scabbing, redness or tenderness. Spot on left breast is thicker and may need a second treatment. Cryotherapy, skin lesion - Left Breast, Right Lower Back (2), Right Upper Back (2) 8. History of basal cell carcinoma Right Jawline No evidence of recurrence at BCC scar. The patient was counseled that scars from excisional sites of nonmelanoma skin cancers should be monitored closely for recurrence. The patient was instructed to contact the office for any new, changing, or symptomatic moles. The patient was also instructed to contact the office for any new lesions that develop within or around the previous surgery scar. Next Visit: 1 year skin exam documented in this encounter [facility] 02-07-2024 Telephone encount er Note Approving, but needs appt for additional refills. [facility] 02-07-2024 Miscellaneous Notes Formattin g of this note might be different from the original. Approving, but needs appt for additional refills. documented in this encounter [facility] 01-29-2024 History of Presen t illness Narrative Images from the original note were not included. Venkat Thompson is a 68 y.o. female presents with chief complaint of No chief complaint on file. HPI: Sx started yesterday. Pain in lower back going down both extremities History of Present Illness The patient presents for evaluation of multiple medical concerns. She reports experiencing muscle soreness and severe pain, which she initially attributed to extensive walking in [place] the previous day. However, she notes that this pain is different from the usual post-exercise soreness. The pain extends from her head down to her lower back and is not a single shooting pain. She finds it difficult to sit or lie down due to the pain, which also disrupts her sleep. She took Tylenol cold medicine today, which provided some relief. She has been using heat pads and ice packs on her legs throughout the day, but these have not provided any relief. She also mentions a runny nose, sore throat, and cough, along with some congestion. She is uncertain about having a fever due to the lack of a thermometer, but recalls feeling hot during the night, prompting her to turn on the air conditioner. She notes that her granddaughter had similar symptoms yesterday, including a sore throat, but these resolved quickly. She took cold medicine this morning to alleviate her body aches. She describes her headache as a squeezing sensation around the top of her head, similar to the cluster headaches she used to experience frequently. Her headache started around 6:00 or 7:00 PM last night. She took Advil PM for her headache this morning. She reports no blurry vision or chest pain. She has not been monitoring her blood pressure at home, but was informed that it was high during today's visit. She has Flonase at home. ALLERGIES She is allergic to VICODIN. SUBJECTIVE: MEDICATIONS: Current Outpatient Medications Medication Instructions albuterol HFA 90 mcg/act inhaler 2 puffs, Inhalation, Every 4 hours PRN albuterol 2.5 mg, Nebulization, Every 6 hours PRN amLODIPine (NORVASC) 10 mg, Oral, Daily aspirin 81 mg, Daily RT busPIRone (BUSPAR) 5 mg, Oral, 2 times daily citalopram (CeleXA) 40 MG tablet TAKE 1 TABLET BY MOUTH EVERY DAY melatonin 10 mg, Every 24 hours meloxicam (MOBIC) 15 mg, Oral, Daily Multiple Vitamins-Minerals (Multivitamin Women 50+) tablet 1 tablet, Every 24 hours I have reviewed and reconciled the history and medication list with the patient today. REVIEW OF SYMPTOMS: Review of Systems Constitutional: Positive for chills and fatigue. HENT: Positive for congestion, ear pain and postnasal drip. Negative for sinus pressure, sinus pain, sneezing, sore throat, trouble swallowing and voice change. Respiratory: Positive for cough. Negative for chest tightness, shortness of breath and wheezing. Cardiovascular: Negative for chest pain, palpitations and leg swelling. Gastrointestinal: Negative. Musculoskeletal: Positive for back pain and neck pain. Neurological: Positive for tremors, weakness and headaches. OBJECTIVE: Visit Vitals BP (!) 166/98 Pulse 95 Ht 5' 4 Wt 168 lb 9.6 oz SpO2 95% BMI 28.94 kg/m Smoking Status Every Day BSA 1.86 m Physical Exam ASSESSMENT AND PLAN: Assessment & Plan 1. Viral Infection. Her COVID-19 and influenza tests returned negative results. Symptoms include severe muscle soreness, congestion, and a headache that began last night. The headache could be due to elevated blood pressure, potentially influenced by the cold medicine she took. She was advised to discontinue the cold medicine and monitor her blood pressure at home. She is currently on meloxicam and was advised against taking Motrin, Aleve, Advil, or ibuprofen in conjunction with meloxicam. Instead, plain Tylenol was recommended. She was instructed to continue using Flonase for nasal congestion. Blood work will be conducted today to further investigate her symptoms. 2. Elevated Blood Pressure. Her blood pressure was noted to be high during the visit, which could be a result of the cold medicine she took. She was advised to monitor her blood pressure at home and avoid taking any cold medicine that could elevate her blood pressure further. If her blood pressure remains elevated, further evaluation and potential adjustment of her medication regimen will be considered. Assessment/Plan Problem List Items Addressed This Visit None Visit Diagnoses Acute nonintractable headache, unspecified headache type - Primary Relevant Orders CBC (Completed) Sedimentation rate, automated (Completed) Myalgia Relevant Orders CBC (Completed) Sedimentation rate, automated (Completed) documented in this encounter [facility] 01-25-2024 History of Presen t illness Narrative Images from the original note were not included. Venkat Thompson is a 68 y.o. female presents with chief complaint of No chief complaint on file. HPI: Patient needs refill for meloxicam History of Present Illness The patient presents for evaluation of multiple medical concerns. She reports a weight loss from 188 to 169 pounds, attributing this to changes in her eating habits, including smaller portions and avoiding late-night snacks. She also mentions feeling less itchy and overall better. However, she experiences extreme sleepiness after meals, which she suspects might be due to low blood sugar levels. This sleepiness usually subsides within an hour. She also experiences occasional heartburn. Her knee inflammation has improved, but she is currently experiencing severe sciatic pain. She requests a refill of her meloxicam prescription. She has tried using ice packs and heat for relief, as recommended by her chiropractor. The pain does not radiate down her leg and is primarily located in the buttock area. She used to receive injections in her hip bursae, but the current pain is not in that location. SUBJECTIVE: MEDICATIONS: Current Outpatient Medications Medication Instructions albuterol HFA 90 mcg/act inhaler 2 puffs, Inhalation, Every 4 hours PRN albuterol 2.5 mg, Nebulization, Every 6 hours PRN amLODIPine (NORVASC) 10 mg, Oral, Daily aspirin 81 mg, Daily RT busPIRone (BUSPAR) 5 mg, Oral, 2 times daily citalopram (CeleXA) 40 MG tablet TAKE 1 TABLET BY MOUTH EVERY DAY melatonin 10 mg, Every 24 hours meloxicam (MOBIC) 15 mg, Oral, Daily Multiple Vitamins-Minerals (Multivitamin Women 50+) tablet 1 tablet, Every 24 hours I have reviewed and reconciled the history and medication list with the patient today. REVIEW OF SYMPTOMS: Review of Systems OBJECTIVE: Visit Vitals BP 130/84 Pulse 103 Ht 5' 4 Wt 172 lb 6.4 oz SpO2 94% BMI 29.59 kg/m Smoking Status Every Day BSA 1.88 m Physical Exam Vitals and nursing note reviewed. Constitutional: Appearance: Normal appearance. Cardiovascular: Rate and Rhythm: Normal rate and regular rhythm. Pulses: Normal pulses. Heart sounds: Normal heart sounds. Pulmonary: Effort: Pulmonary effort is normal. Breath sounds: Normal breath sounds. Musculoskeletal: Cervical back: Normal range of motion and neck supple. Neurological: General: No focal deficit present. Mental Status: She is alert. Psychiatric: Mood and Affect: Mood normal. ASSESSMENT AND PLAN: Assessment & Plan 1. Weight Management. She has lost approximately 20 pounds and reports feeling better with reduced itchiness. She has been maintaining smaller portion sizes and avoiding nighttime snacks, even during a 2-week period without her medication. It was discussed that there might be a future where compounding pharmacies may not be able to provide the medication due to FDA regulations. She is encouraged to continue her current eating habits to maintain her weight loss if the medication becomes unavailable. 2. Sciatica. She reports that her sciatica pain has flared up after stepping on a rock. She uses ice and heat for relief but has not had significant issues for a long time. A prescription for meloxicam was renewed to manage her sciatica symptoms and will be [facility]. She was advised to perform specific exercises to help alleviate the pain. 3. Postprandial Somnolence. She reports feeling extremely sleepy after eating, even with small portions. This may be related to the medication slowing down the movement of food through her gut, causing prolonged fullness. No immediate changes to her medication were made, but she was advised to monitor her symptoms. 4. Occasional Heartburn. She experiences occasional heartburn, which is a known side effect of her current medication. She was advised to continue monitoring her symptoms and report any significant changes. Assessment/Plan Problem List Items Addressed This Visit Benign essential HTN (CMS/HCC) Other Visit Diagnoses Sciatica of left side - Primary Mobic. Exercise handouts given. Pain in joints of both feet Relevant Medications meloxicam (Mobic) 15 MG tablet Obesity (BMI 30-39.9) Continue semaglutide as she is doing well and losing weight. No side effects or problems. documented in this encounter [facility] 01-15-2024 Telephone encount er Note Venkat has an appt scheduled but needs refill .. Semaglutide to [facility] in [place] . [place] [facility] 01-15-2024 Miscellaneous Notes Formattin g of this note might be different from the original. Venkat has an appt scheduled but needs refill .. Semaglutide to [facility] in [place] . [place] documented in this encounter [facility] Evaluation note Diagnosis Benign essential HTN (CMS/HCC)- Primary History of cervical spine trauma Mixed hyperlipidemia (CMS/HCC) Mixed hyperlipidemia Recurrent major depressive disorder, in full remission (CMS/HCC) Nicotine dependence, cigarettes, uncomplicated Encounter for screening mammogram for breast cancer Screening for hyperlipidemia Screening for lipoid disorders Routine general medical examination at health care facility Routine general medical examination at a health care facility Anxiety Anxiety state, unspecified Myalgia due to HMG CoA reductase inhibitor Sciatica of left side- Primary Pain in joints of both feet Benign essential HTN (CMS/HCC) Obesity (BMI 30-39.9) documented in this encounter [facility]* Diagnosis Benign essential HTN (CMS/HCC)- Primary History of cervical spine trauma Mixed hyperlipidemia (CMS/HCC) Mixed hyperlipidemia Recurrent major depressive disorder, in full remission (CMS/HCC) Nicotine dependence, cigarettes, uncomplicated Encounter for screening mammogram for breast cancer Screening for hyperlipidemia Screening for lipoid disorders Routine general medical examination at health care facility Routine general medical examination at a health care facility Anxiety Anxiety state, unspecified Myalgia due to HMG CoA reductase inhibitor Acute nonintractable headache, unspecified headache type- Primary Myalgia Unspecified myalgia and myositis documented in this encounter [facility]* Diagnosis Benign essential HTN (CMS/HCC)- Primary History of cervical spine trauma Mixed hyperlipidemia (CMS/HCC) Mixed hyperlipidemia Recurrent major depressive disorder, in full remission (CMS/HCC) Nicotine dependence, cigarettes, uncomplicated Encounter for screening mammogram for breast cancer Screening for hyperlipidemia Screening for lipoid disorders Routine general medical examination at health care facility Routine general medical examination at a health care facility Anxiety Anxiety state, unspecified Myalgia due to HMG CoA reductase inhibitor Melanocytic nevus of scalp- Primary Benign neoplasm of scalp and skin of neck Seborrheic keratosis Lentigines Sebaceous hyperplasia of face Epidermal inclusion cyst Sebaceous cyst Acne vulgaris Other acne Seborrheic keratosis, inflamed History of basal cell carcinoma Personal history of other malignant neoplasm of skin documented in this encounter [facility]* Diagnosis Benign essential HTN (CMS/HCC)- Primary History of cervical spine trauma Mixed hyperlipidemia (CMS/HCC) Mixed hyperlipidemia Recurrent major depressive disorder, in full remission (CMS/HCC) Nicotine dependence, cigarettes, uncomplicated Encounter for screening mammogram for breast cancer Screening for hyperlipidemia Screening for lipoid disorders Routine general medical examination at health care facility Routine general medical examination at a health care facility Anxiety Anxiety state, unspecified Myalgia due to HMG CoA reductase inhibitor Recurrent major depressive disorder, in full remission (CMS/HCC) documented in this encounter [facility]* Diagnosis Benign essential HTN (CMS/HCC)- Primary History of cervical spine trauma Mixed hyperlipidemia (CMS/HCC) Mixed hyperlipidemia Recurrent major depressive disorder, in full remission (CMS/HCC) Nicotine dependence, cigarettes, uncomplicated Encounter for screening mammogram for breast cancer Screening for hyperlipidemia Screening for lipoid disorders Routine general medical examination at health care facility Routine general medical examination at a health care facility Anxiety Anxiety state, unspecified Myalgia due to HMG CoA reductase inhibitor Anxiety Anxiety state, unspecified documented in this encounter [facility]* Diagnosis Benign essential HTN (CMS/HCC)- Primary History of cervical spine trauma Mixed hyperlipidemia (CMS/HCC) Mixed hyperlipidemia Recurrent major depressive disorder, in full remission ([facility]/HCC) Nicotine dependence, cigarettes, uncomplicated Encounter for screening mammogram for breast cancer Screening for hyperlipidemia Screening for lipoid disorders Routine general medical examination at health care facility Routine general medical examination at a health care facility Anxiety Anxiety state, unspecified Myalgia due to HMG CoA reductase inhibitor Pulmonary nodule- Primary Other diseases of lung, not elsewhere classified Tobacco use Personal history of nicotine dependence documented in this encounter [facility] Summary Purpose Family History No Family History Records FoundNo Family History Records FoundNo Family History Records FoundNo Family History Records Found Advance Directives No Advanced Directives Records FoundNo Advanced Directives Records FoundNo Advanced Directives Records FoundNo Advanced Directives Records Found Additional Source Comments INFORMATION SOURCE (unrecogn ized section and content) DATE CREATED AUTHOR 09/27/2017 [facility] DATE CREATED AUTHOR AUTHOR'S ORGANIZ ATION 05/13/2021 [facility] DATE CREATED AUTHOR AUTHOR'S ORGANIZ ATION 09/22/2021 [facility] DATE CREATED AUTHOR AUTHOR'S ORGANIZ ATION 07/16/2024 [facility] EPIC Reason for Visit (unrecogniz ed section and content) Reason Onset Date Comments Med Refill 01/14/2024 Reason Comments Skin Check Suspicious Skin Lesion Reason Comments Med Refill Reason Onset Date Comments Med Refill 04/08/2024 Care Teams (unrecognized sec tion and content) Case Assembler Relationship Specialty Start Date End Date Shruthi Fernandez MD [address] [place] [address] PCP - General Family Medicine 09/12/22 Shruthi Fernandez MD [address] [place] [address] PCP Claudette James MA 10/07/22 Case Assembler Relationship Specialty Start Date End Date Shruthi Fernandez MD [address] [place] [address] PCP - General Family Medicine 09/12/22 Shruthi Fernandez MD [address] [place] [address] PCP Claudette James MA 10/07/22 Case Assembler Relationship Specialty Start Date End Date Shruthi Fernandez MD [address] [place] [address] PCP - General Family Medicine 09/12/22 Shruthi Fernandez MD [address] [place] [address] PCP - Jacob LUDWIG 10/07/22 Case Assembler Relationship Specialty Start Date End Date Shruthi Fernandez MD [address] [place] [address] PCP - General Family Medicine 09/12/22 Shruthi Fernandez MD [address] [place] [address] PCP - Jacob LUDWIG 10/07/22 Case Assembler Relationship Specialty Start Date End Date Shruthi Fernandez MD [address] [place] [address] PCP - General Family Medicine 09/12/22 Shruthi Fernandez MD [address] [place] [address] PCP - Jacob LUDWIG 10/07/22 Case Assembler Relationship Specialty Start Date End Date Shruthi Fernandez MD [address] [place] [address] PCP - General Family Medicine 09/12/22 Shruthi Fernandez MD [address] [place] [address] PCP - Jacob LUDWIG 10/07/22 Case Assembler Relationship Specialty Start Date End Date Shruthi Fernandez MD [address] [place] [address] PCP - General Family Medicine 09/12/22 Shruthi Fernandez MD [address] [place] [address] PCP Claudette James MA 10/07/22 Case Assembler Relationship Specialty Start Date End Date Shruthi Fernandez MD [address] [place] [address] PCP - General Family Medicine 09/12/22 Shruthi Fernandez MD [address] [place] [address] PCP - Jacob LUDWIG 10/07/22 Case Assembler Relationship Specialty Start Date End Date Shruthi Fernandez MD [address] [place] [address] PCP - General Family Medicine 09/12/22 Shruthi Fernandez MD [address] [place] [address] PCP Claudette James MA 10/07/22 Case Assembler Relationship Specialty Start Date End Date Shruthi Fernandez MD [address] [place] [address] PCP - General Family Medicine 09/12/22 Case Assembler Relationship Specialty Start Date End Date Shruthi Fernandez MD [address] [place] [address] PCP - General Family Medicine 09/12/22 Shruthi Fernandez MD [address] [place] [address] PCP Claudette James MA 10/07/22 FOR RECORDS PERTAINING TO PATIENTS WHO ARE OR HAVE BEEN ENROLLED IN A CHEMICAL DEPENDENCY/SUBSTANCEABUSE PROGRAM, SOME INFORMATION MAY BE OMITTED. This clinical summary was aggregated from multiple sources. Caution should be exercised in using it in the provision of clinical care. This summary normalizes information from multiple sources, and as a consequence, information in this document may materially change the coding, format and clinical context of patient data. In addition, data may be omitted in some cases. CLINICAL DECISIONS SHOULD BE BASED ON THE PRIMARY CLINICAL RECORDS. [facility]. provides no warranty or guarantee of the accuracy or completeness of information in this document.
--- NOTE | 2024-07-26 15:21 | ED_ITS ---
HPI - Dizziness General Chief Complaint: Dizziness Stated Complaint: DIZZINESS, FEELS LIKE PASSING OUT Time Seen by Provider: 07/26/24 15:13 Source: patient Mode of arrival: walk-in Limitations: no limitations History of Present Illness HPI Narrative: The patient has come to the ER within an hour of having dizziness episodes, is in the barn working with her horse when apparently she did not do anything out of her regular daily activity no exertion. The patient all of a sudden started feeling dizzy and sweating. She went and sat down in the chair but she still feeling dizzy while she was in the chair and then she felt swelling as well and dizzy like she is going to pass out and then she had a big bowel movement that is loose and diarrhea-like. The patient came to the ER via private car but she still feeling off balance and although she does not have any dizziness at the moment but she still feels fatigued No chest pain at any time no preceding symptoms to this incident Related Data Home Medications ?Medication ?Instructions ?Recorded ?Confirmed albuterol sulfate 2.5 mg/3 mL 2.5 mg inhalation Q8H PRN 07/26/24 07/26/24 (0.083 %) solution for nebulization shortness of breath or wheezing amlodipine 10 mg tablet 10 mg PO DAILY 07/26/24 07/26/24 aspirin 81 mg capsule 81 mg PO DAILY 07/26/24 07/26/24 buspirone 5 mg tablet 5 mg PO DAILY 07/26/24 07/26/24 citalopram 40 mg tablet 40 mg PO DAILY 07/26/24 07/26/24 Allergies Allergy/AdvReac Type Severity Reaction Status Date / Time No Known Drug Allergies Allergy Verified 09/03/23 10:19 Review of Systems ROS Status of ROS 10 or more systems reviewed and unremark able except as noted in history and below PFSH PFSH Social History Little interest or pleasure in doing things: not at all Feeling down, depressed, or hopeless: not at all Exam Narrative Exam Narrative: Nurses notes and vital signs reviewed and patient is not hypoxic. General: Well-appearing and in no apparent distress. Skin: Warm, dry, no pallor noted. No rash. Head: Normocephalic, atraumatic. Neck: Supple, non-tender. Cardiovascular: Regular Rate and Rhythm without murmur, gallop or rub. Respiratory: No accessory muscle use or respiratory distress. Lungs are clear to auscultation, no wheezing, rales or rhonchi Chest Wall: no tenderness Back: No midline thoracic or lumbar vertebral tenderness. No CVA tenderness Musculoskeletal: normal ROM, no calf or popliteal tenderness, no lower extremity edema/swelling GI: Abdomen is soft, non-distended. Normal bowel sounds. No masses appreciated. No tenderness to palpation. No rebound, guarding, or rigidity noted. Neurological: A&O x4. No cranial nerve dysfunction observed. Moves all extremities. Sensation intact. Psychiatric: Cooperative and interactive. Normal mood and affect. Constitutional Vital Signs, click to edit/add: Last Vital Signs Temp 98 F 07/26/24 18:21 Pulse 68 07/26/24 18:21 Resp 13 07/26/24 18:21 BP 140/71 07/26/24 18:21 Pulse Ox 96 07/26/24 18:21 O2 Del Method Room Air 07/26/24 18:21 Course Vital Signs Vital signs: Vital Signs Temperature 97.9 F 07/26/24 15:09 Pulse Rate 77 07/26/24 15:09 Respiratory Rate 18 07/26/24 15:09 Blood Pressure 139/82 07/26/24 15:09 Pulse Oximetry 96 07/26/24 15:09 Oxygen Delivery Method Room Air 07/26/24 15:09 Temperature 98 F 07/26/24 18:21 Pulse Rate 68 07/26/24 18:21 Respiratory Rate 13 07/26/24 18:21 Blood Pressure 140/71 07/26/24 18:21 Pulse Oximetry 96 07/26/24 18:21 Oxygen Delivery Method Room Air 07/26/24 18:21 MDM - Dizziness MDM Narrative Medical decision making narrative: The EKG in the ER showing sinus rhythm with a heart rate of [address] elevation or depression The patient CBC and chemistry showed no acute pathology except for small mild leukocytosis that is mostly reactive CT head was within normal The patient was discharged after she was provided IV fluid and her troponin was repeated twice and it was negative Patient had no more symptoms of the fluid and she was discharged home with hydration and monitoring her symptoms Presentation could be secondary to vasovagal after the patient had this feeling of nausea associate with the dizziness and then she had a big bowel movement that is loose The patient is to follow up with primary care physician in next 2-3 days or to return to the emergency department should any of the signs or symptoms worsen or new symptoms develop. The patient agrees with the following Diagnosis and Treatment plan and the patient will be discharged home. Lab Data Labs: Lab Results 07/26/24 07/26/24 Range/Units 15:18 17:06 WBC 13.1 H (4.0-11.0) 10^3/uL RBC 4.50 (4.20-5.40) 10^6/uL Hgb 13.9 (12.0-16.0) g/dL Hct 42.2 (36.0-48.0) % MCV 93.8 (81.0-99.0) fL MCH 30.9 (26.7-34.0) pg MCHC 32.9 (29.9-35.2) g/dL RDW 13.1 (11.0-15.0) % Plt Count 352 (150-450) 10^3/uL MPV 8.4 L (9.5-13.5) fL Neut % (Auto) 75.0 (43.0-75.0) % Lymph % (Auto) 16.4 L (20.5-60.0) % [place] % (Auto) 5.1 (1.7-12.0) % Eos % (Auto) 2.6 (0.9-7.0) % Baso % (Auto) 0.7 (0.2-2.0) % Neut # (Auto) 9.8 H (1.4-6.5) 10^3/uL Lymph # (Auto) 2.2 (1.2-3.8) 10^3/uL [place] # (Auto) 0.7 (0.3-0.8) 10^3/uL Eos # (Auto) 0.3 (0.0-0.7) 10^3/uL Baso # (Auto) 0.1 (0.0-0.1) 10^3/uL Abs Immat Gran (auto) 0.02 (0.00-0.03) 10^3/uL Imm/Tot Granulo (auto) 0.2 (0.0-0.5) % PT 10.9 (9.0-11.6) sec INR 1.03 Sodium 138 (136-145) mmol/L Potassium 3.8 (3.5-5.1) mmol/L Chloride 102 (98-107) mmol/L Carbon Dioxide 27.2 (21.0-32.0) mmol/L Anion Gap 12.6 BUN 18.0 (7.0-18.0) mg/dL Creatinine 0.90 (0.55-1.02) mg/dL Est GFR ( Amer) >60 (>=60 mL/min/1.73m^2) Est GFR (Non-Af Amer) >60 (>=60 mL/min/1.73m^2) BUN/Creatinine Ratio 20.0 Glucose 149 H (74-106) mg/dL Calcium 8.9 (8.5-10.1) mg/dL Magnesium 2.0 (1.8-2.4) mg/dL Total Bilirubin 0.2 (0.2-1.0) mg/dL AST 17 (15-37) U/L ALT 10 L (14-59) U/L Alkaline Phosphatase 79 (46-116) U/L Troponin I High Sens 8.8 5.8 (4.0-51.3) pg/mL Total Protein 7.3 (6.4-8.2) g/dL Albumin 3.3 L (3.4-5.0) g/dL Globulin 4.0 g/dL Albumin/Globulin Ratio 0.8 Discharge Plan Discharge Chief Complaint: Dizziness Clinical Impression: Dizziness Patient Disposition: Home, Self-Care Time of Disposition Decision: 18:02 Condition: Good Prescriptions / Home Meds: No Action amlodipine 10 mg tablet 10 mg PO DAILY buspirone 5 mg tablet 5 mg PO DAILY citalopram 40 mg tablet 40 mg PO DAILY albuterol sulfate 2.5 mg /3 mL (0.083 %) solution for nebulization 2.5 mg inhalation Q8H PRN (Reason: shortness of breath or wheezing) aspirin 81 mg capsule 81 mg PO DAILY Print Language: Q[place] Instructions: Lightheadedness (ED), Dizziness (ED) Referrals: QUITA FERNANDEZ [Primary Care Provider] - 1 week Discharge Date/Time: 07/26/24 18:24
[2024-07-26 15:27] LABS: Basophils Absolute Auto 0.1 10^3/uL (0.0-0.1); Basophils Percent Auto 0.7 % (0.2-2.0); Eosinophils Absolute Auto 0.3 10^3/uL (0.0-0.7); Eosinophils Percent Auto 2.6 % (0.9-7.0); Hematocrit 42.2 % (36.0-48.0); Hemoglobin 13.9 g/dL (12.0-16.0); Immature Granulocytes Abs Auto 0.02 10^3/uL (0.00-0.03); Immature Granulocytes Pct Auto 0.2 % (0.0-0.5); Lymphocytes Absolute Auto 2.2 10^3/uL (1.2-3.8); Lymphocytes Percent Auto 16.4 % (20.5-60.0); Mean Corpuscular HGB Conc 32.9 g/dL (29.9-35.2); Mean Corpuscular Hemoglobin 30.9 pg (26.7-34.0); Mean Corpuscular Volume 93.8 fL (81.0-99.0); Mean Platelet Volume 8.4 fL (9.5-13.5); Monocytes Absolute Auto 0.7 10^3/uL (0.3-0.8); Monocytes Percent Auto 5.1 % (1.7-12.0); Neutrophils Absolute Auto 9.8 10^3/uL (1.4-6.5); Platelet Count 352 10^3/uL (150-450); Red Cell Distribution Width 13.1 % (11.0-15.0); White Blood Count 13.1 10^3/uL (4.0-11.0)
[2024-07-26 15:44] LABS: Alanine Aminotransferase 10 U/L (14-59); Albumin Globulin Ratio 0.8; Albumin Level 3.3 g/dL (3.4-5.0); Alkaline Phosphatase 79 U/L (46-116); Anion Gap 12.6; Aspartate Amino Transferase 17 U/L (15-37); Bilirubin Total 0.2 mg/dL (0.2-1.0); Calcium 8.9 mg/dL (8.5-10.1); Carbon Dioxide 27.2 mmol/L (21.0-32.0); Chloride 102 mmol/L (98-107); Estimated GFR (African America >60 (>=60 mL/min/1.73m^2); Estimated GFR (Non-African Ame >60 (>=60 mL/min/1.73m^2); Glucose 149 mg/dL (74-106); Potassium 3.8 mmol/L (3.5-5.1); Sodium 138 mmol/L (136-145); Total Protein 7.3 g/dL (6.4-8.2)
[2024-07-26 15:46] LABS: INR 1.03; Prothrombin Time 10.9 sec (9.0-11.6); Troponin I High Sensitivity 8.8 pg/mL (4.0-51.3)
[2024-07-26] MEDS: 0.9 % SODIUM CHLORIDE 1,000 ML 1000 ML IV (15:50)
[2024-07-26 17:27] LABS: Troponin I High Sensitivity 5.8 pg/mL (4.0-51.3)
== END 2024-07-26 18:24 | disposition home or self-care (01) ==
PROVIDERS: Emergency Provider Emergency Medicine; PCP Family Medicine
DX: R42 Dizziness and giddiness (principal); R19.7 Diarrhea, unspecified
CPT/HCPCS: 36415; 70450; 80053; 83735; 84484; 85025; 85610; 93005; 96360; 96361; 99285